=== PATIENT | male | born 1990 | race Two or more races ===

== ENCOUNTER 2017-06-26 15:41 | Emergency (ER) | payer MEDICAID ==
[~2017-06-26] VITALS: Ht 172.7 cm; Wt 86.2 kg
[2017-06-26 17:24] VITALS: BP 142/85
== END 2017-06-26 18:09 | disposition home or self-care (01) ==
LOC: ER 15:41
DX: S70.211A Abrasion, right hip, initial encounter (principal); R51 Headache; M54.2 Cervicalgia; V43.52XA Car driver injured in collision with other type car in traffic accident, initial encounter; Y93.89 Activity, other specified; Y92.89 Other specified places as the place of occurrence of the external cause; Y99.8 Other external cause status; R42 Dizziness and giddiness
CPT/HCPCS: 70450; 72050